=== PATIENT | male | born 1935 | race Caucasian/White ===

== ENCOUNTER → 2019-08-06 | Outpatient (CLI) | payer MEDICARE, OTHER ==
[~2019-08-06] MED LIST: AZELASTINE137 MCG/0. NS; Advil200 M1 PO; Allergy Medicat25 MG PO; LOSA50 PO; Synthroid25 MCG PO; VITAMIN D31000 UNIT
== END | disposition home or self-care (01) ==
LOC: LAB 17:14 → LAB SHORT 17:14
DX: L02.91 Cutaneous abscess, unspecified (principal)
CPT/HCPCS: 87070; 87205

== ENCOUNTER 2019-09-30 07:42 | Day surgery (SDC) | payer MEDICARE, OTHER ==
[~2019-09-30] VITALS: Ht 172.7 cm; Wt 75.1 kg
== END 2019-09-30 09:53 | disposition home or self-care (01) ==
LOC: ORSCSDS 07:42
PROVIDERS: Internal Medicine Gastroenterology
PROC: 0DBL8ZX Excision of Transverse Colon, Via Natural or Artificial Opening Endoscopic, Diagnostic (ICD-10-PCS; principal; 2019-09-30 09:00)
PROC: 0DBN8ZX Excision of Sigmoid Colon, Via Natural or Artificial Opening Endoscopic, Diagnostic (ICD-10-PCS; principal; 2019-09-30 09:00)
PROC: 0DBH8ZX Excision of Cecum, Via Natural or Artificial Opening Endoscopic, Diagnostic (ICD-10-PCS; principal; 2019-09-30 09:00)
PROC: 0DBK8ZX Excision of Ascending Colon, Via Natural or Artificial Opening Endoscopic, Diagnostic (ICD-10-PCS; principal; 2019-09-30 09:00)
DX: Z12.11 Encounter for screening for malignant neoplasm of colon (principal); Z86.010 Personal history of colon polyps; K57.30 Diverticulosis of large intestine without perforation or abscess without bleeding; Z80.0 Family history of malignant neoplasm of digestive organs; D12.5 Benign neoplasm of sigmoid colon; D12.3 Benign neoplasm of transverse colon; D12.0 Benign neoplasm of cecum; D12.2 Benign neoplasm of ascending colon; Z79.899 Other long term (current) drug therapy
CPT/HCPCS: 88305; J0330; J0461; J2405; J2704; J7120

== ENCOUNTER 2022-11-02 07:44 | Day surgery (SDC) | payer MEDICARE, OTHER ==
[~2022-11-02] VITALS: Ht 172.7 cm; Wt 74.9 kg
[2022-11-02] MEDS ORDERED: GUAI600T33 PO (08:14)
[2022-11-02 09:38] VITALS: BP 110/69
== END 2022-11-02 09:48 | disposition home or self-care (01) ==
LOC: ORSCSDS 07:44
PROVIDERS: Internal Medicine Gastroenterology
PROC: 0DBK8ZX Excision of Ascending Colon, Via Natural or Artificial Opening Endoscopic, Diagnostic (ICD-10-PCS; principal; 2022-11-02 09:00)
PROC: 0DBL8ZX Excision of Transverse Colon, Via Natural or Artificial Opening Endoscopic, Diagnostic (ICD-10-PCS; principal; 2022-11-02 09:00)
DX: Z12.11 Encounter for screening for malignant neoplasm of colon (principal); Z86.010 Personal history of colon polyps; Z80.0 Family history of malignant neoplasm of digestive organs; D12.2 Benign neoplasm of ascending colon; D12.3 Benign neoplasm of transverse colon; K57.30 Diverticulosis of large intestine without perforation or abscess without bleeding; K64.8 Other hemorrhoids; Z79.899 Other long term (current) drug therapy
CPT/HCPCS: 88305; J2704; J7120